=== PATIENT | female | born 1950 | race Caucasian/White ===

== ENCOUNTER 2024-07-10 14:32 | Observation (INO) ==
[2024-07-10 15:12] LABS: ABS Eosinophils 0.1 10^3/uL (0.0-0.5); ABS Lymphocytes 1.4 10^3/uL (1.0-4.8); ABS Monocytes 0.4 10^3/uL (0.0-0.9); ABS Nucleated RBC 0.01 10^3/ul; Eosinophil % 1.9 %; Hematocrit 37.8 % (35-45); Hemoglobin 12.4 g/dL (11.5-14.3); Lymphocyte % 23.7 %; Mean Corpuscular Hemoglobin 27.2 pg (27-33); Mean Corpuscular Hgb Conc 32.9 g/dL (31-36); Mean Corpuscular Volume 82.8 fL (80-97); Mean Platelet Volume 8.7 fL (7.5-11.2); Nucleated Red Blood Cells % 0.2 %/100WBC (0.0-0.8); Platelet Count 199 10^3/uL (150-450); Red Blood Count 4.56 10^6/uL (3.63-4.92); Red Cell Distribution Width 15.1 % (12-17); White Blood Count 6.1 10^3/uL (3.8-11.8)
[2024-07-10 15:15] LABS: INR 0.95 (0.85-1.14)
[2024-07-10 15:37] LABS: Albumin 4.1 g/dL (3.2-5.2); Albumin/Globulin Ratio 1.8 (1-3); Calcium 9.1 mg/dL (8.6-10.3); Creatinine, Serum 0.57 mg/dL (0.51-0.95); Globulin 2.3 g/dL (2-4); Total Bilirubin 0.5 mg/dL (0.2-1.0); Total Protein 6.4 g/dL (6.4-8.9); eGFR CKD-EPI 96.5 (>60)
[2024-07-10 16:23] LABS: High Sensitivity Troponin 1 Hr 3 pg/mL (<15)
[2024-07-10] MEDS: Iohexol 350 (CONTRAST) 500 ML MDV IV ONE (17:29)
[2024-07-10] MEDS: Heparin 5000 UNITS/ML 1 mL VIAL SUBCUT SCH (23:30)
[2024-07-10 23:47] LABS: HDL Cholesterol 62.6 mg/dL; Magnesium 2.2 mg/dL (1.9-2.7)
[2024-07-11] MEDS ORDERED: Sulfur Hexaflouride MICROSPHR 25 MG VIAL IV PRN (00:17)
[2024-07-11] MEDS ORDERED: Enoxaparin 40 MG/0.4 ML SYR SUBCUT SCH (01:00)
[2024-07-11 06:22] LABS: ABS Eosinophils 0.1 10^3/uL (0.0-0.5); ABS Lymphocytes 1.6 10^3/uL (1.0-4.8); ABS Monocytes 0.4 10^3/uL (0.0-0.9); ABS Neutrophils 3.2 10^3/uL (1.5-7.6); Eosinophil % 2.6 %; Hematocrit 35.6 % (35-45); Hemoglobin 11.9 g/dL (11.5-14.3); Lymphocyte % 29.7 %; Mean Corpuscular Hemoglobin 27.5 pg (27-33); Mean Corpuscular Hgb Conc 33.5 g/dL (31-36); Mean Corpuscular Volume 82.1 fL (80-97); Mean Platelet Volume 8.9 fL (7.5-11.2); Nucleated Red Blood Cells % 0.1 %/100WBC (0.0-0.8); Platelet Count 193 10^3/uL (150-450); Red Blood Count 4.33 10^6/uL (3.63-4.92); White Blood Count 5.4 10^3/uL (3.8-11.8)
[2024-07-11 06:39] LABS: Calcium 8.8 mg/dL (8.6-10.3); Creatinine, Serum 0.49 mg/dL (0.51-0.95); Magnesium 2.1 mg/dL (1.9-2.7); eGFR CKD-EPI 100.1 (>60)
[2024-07-11] MEDS: Mometasone/Formoter 100/5 MDI INH SCH (07:57)
[2024-07-11] MEDS: [UNRECOGNIZED DRUG - OTHER] INH SCH (08:03)
[2024-07-11] MEDS ORDERED: Albuterol HFA INHALER 8 gm MDI INH PRN (10:33)
[2024-07-11 11:45] VITALS: BP 112/70
[2024-07-11] MEDS: Enoxaparin 40 MG/0.4 ML SYR SUBCUT SCH (14:15)
[2024-07-11] MEDS: COVID VAC 24-25 (12+) (Moderna) Syringe 0.5 mL IM ONE (14:17)
[2024-07-11 15:36] LABS: C Reactive Protein 42.66 mg/L (<8.01)
[2024-07-11 15:38] LABS: Erythrocyte Sed Rate 46 mm/Hr (0-29)
== END 2024-07-11 14:40 | disposition home or self-care (01) ==
LOC: ED 14:32 → INTOOBSV 22:34 → SUATTDRO 22:34 → EDHOLD 22:34 → MEDTELE 07-11 00:30
PROVIDERS: ADMIT Internal Medicine; ATTEND Internal Medicine